=== PATIENT | female | born 1990 | race American Indian/Alaskan Native ===

== ENCOUNTER 2022-01-07 00:45 | Emergency (ER) | payer OTHER ==
[2022-01-07] MEDS ORDERED: diphenhydrAMINE 50 MG/ML VIAL IV ONE (03:59)
[2022-01-07] MEDS ORDERED: dexAMETHasone 20 MG/5 ML VIAL IV ONE (03:59)
[2022-01-07] MEDS ORDERED: FAMOTIDINE 20 MG/2 ML INJ IV ONE (03:59)
--- NOTE | 2022-01-07 04:27 | Emergency Department Report ---
HPI - General Chief Complaint: Allergic Reaction Time Seen by Provider: 01/07/22 03:58 - HPI HPI: Patient 31-year-old female brought in by [facility] for allergic reaction. Patient states insect sting on yesterday causing pain swelling and burning to left upper arm. Repeat sting tonight return during symptoms which included hives. Patient denies history of bee allergies. EMS was called to scene by patient patient received 50mg of Benadryl in the field via IV which has improved symptoms. Patient denies shortness of breath no dizziness lightheadedness no nausea vomiting no fever chills. There is no chest pain. ED Past Medical Hx - Past Medical History Previous Medical History?: Yes Additional medical history: Obesity - Surgical History Past Surgical History?: Yes Hx Cholecystectomy: Yes - Social History Smoking Status: Current Every Day Smoker Substance Use Type: None - Medications Home Medications: Home Medications Medication Instructions Recorded Confirmed Last Taken Type Dexamethasone [Decadron] 6 mg PO BID 5 Days #10 tab 01/07/22 Unknown Rx EPINEPHrine [Epipen 2-Salas] 0.3 mg IM PRN PRN #1 each 01/07/22 Unknown Rx Famotidine [Pepcid] 20 mg PO BID 7 Days #14 tablet 01/07/22 Unknown Rx diphenhydrAMINE [Benadryl CAP] 25 mg PO Q8HR PRN 7 Days #21 01/07/22 Unknown Rx capsule ED Review of Systems ROS: Stated complaint: ALLERGIC REACTION Other details as noted in HPI Constitutional: denies: chills, fever Eyes: denies: eye pain, eye discharge, vision change ENT: denies: ear pain, throat pain, congestion Respiratory: denies: cough, shortness of breath, wheezing Cardiovascular: denies: chest pain, palpitations Endocrine: no symptoms reported Gastrointestinal: denies: abdominal pain, nausea, vomiting, diarrhea Genitourinary: denies: urgency, dysuria, discharge Musculoskeletal: denies: back pain, joint swelling, arthralgia Skin: denies: rash, lesions Neurological: denies: headache, weakness, paresthesias, confusion, vertigo Psychiatric: denies: anxiety, depression Hematological/Lymphatic: denies: easy bleeding, easy bruising Physical Exam - Physical Exam Vital Signs: Vital Signs 01/07/22 00:46 Temperature 98 F Pulse Rate 84 Respiratory 18 Rate Blood Pressure 138/78 O2 Sat by Pulse 100 Oximetry General: Patient appears well-hydrated well-nourished and nontoxic patient with no acute distress no respiratory distress Physical Exam: ENT is normal airway is patent there is no lesions no exudate no swelling. No stridor or wheezing. Lungs are clear throughout, heart sounds are normal, abdomen soft nontender no peritoneal signs. There is no labored breathing. Patient alert and oriented x3 has ambulated from chair to bathroom and returned to chair without increased shortness of breath. No hives no rash no open or weeping skin. ED Course Vital Signs 01/07/22 00:46 Temperature 98 F Pulse Rate 84 Respiratory 18 Rate Blood Pressure 138/78 O2 Sat by Pulse 100 Oximetry - Reevaluation(s) Reevaluation #1: Benadryl 50 mg given in field, patient received Decadron and Reglan in the ED. Plan DC to home with prescriptions. Patient given EpiPen instructions. Patient verbalized agreement and understanding with same. Patient will be DC'd to home in stable condition at this time. 01/07/22 04:26 ED Medical Decision Making - Medical Decision Making Patient tolerating p.o. intake without symptoms lung sounds remain clear respirations are even and nonlabored there is no wheezing.. Patient with no acute distress, there is no noted rash no erythema Critical care attestation.: If time is entered above; I have spent that time in minutes in the direct care of this critically ill patient, excluding procedure time. ED Disposition Clinical Impression: Allergic reaction to insect sting Qualifiers: Encounter type: initial encounter Injury intent: accidental or unintentional Qualified Code(s): T63.481A - Toxic effect of venom of other arthropod, accidental (unintentional), initial encounter Disposition: 01 HOME / SELF CARE / HOMELESS Is pt being admited?: No Does the pt Need Aspirin: No Condition: Stable Instructions: Allergies, Adult, How to Use an Auto-Injector Pen Additional Instructions: Take medications as prescribed, use EpiPen as directed. For severe allergy symptoms. Follow-up with your doctor in 2 to 3 days. Return to emergency department should symptoms worsen. Prescriptions: diphenhydrAMINE [Benadryl CAP] 25 mg PO Q8HR PRN 7 Days #21 capsule PRN Reason: allergies itching Dexamethasone [Decadron] 6 mg PO BID 5 Days #10 tab EPINEPHrine [Epipen 2-Salas] 0.3 mg IM PRN PRN #1 each PRN Reason: severe allergy symptoms Famotidine [Pepcid] 20 mg PO BID 7 Days #14 tablet Referrals: [facility] [Provider Group] - 3-5 Days Forms: Work/School Release Form(ED) Time of Disposition: 04:33
[2022-01-07 05:22] VITALS: BP 112/62
== END 2022-01-07 04:46 | disposition home or self-care (01) ==
LOC: ED 00:45
DX: T63.441A Toxic effect of venom of bees, accidental (unintentional), initial encounter (principal); E66.9 Obesity, unspecified; Z98.890 Other specified postprocedural states; F17.290 Nicotine dependence, other tobacco product, uncomplicated; Y92.89 Other specified places as the place of occurrence of the external cause
CPT/HCPCS: 96374; 96375; 99283; J1100; J3490